=== PATIENT | female | born 1940 | race Caucasian/White ===

== ENCOUNTER 2021-01-11 20:23 | Emergency (ER) | payer MEDICARE, OTHER ==
[~2021-01-11 20:23] MED LIST: ALLEGRA ALLERG180 MG PO; ASPIRIN EC81 MG PO; BENTYL10 MG PO; CARTIA XT120 MG PO; COZAAR 25MG TAB25 MG PO; FLONASE ALLER15.8 ML; K-DUR20 MEQ PO; LASIX40 MG PO; NORCO 5-325 TA1 EACH PO; PHAZYME180 MG PO; PRAVACHOL20 MG PO; PROTONIX 40MG T40 MG PO; SINGULAIR10 MG PO; SUPER B COMPLE150 MG PO; VITAMIN D50000 UNIT PO
[2021-01-11 21:05] LABS: BASOPHIL 0.7 % (0-2); EOSINOPHIL 2.8 % (0-7); HCT 37.3 % (37.0-47.0); HGB 12.2 g/dl (12.5-16.0); LYMPHOCYTE 40.2 % (15-48); MCH 30.6 pg (25.0-31.0); MCHC 32.7 g/dL (32.0-36.0); MCV 93.5 fL (78.0-100.0); MONOCYTE 13.7 % (0-12); MPV 11.1 fL (6.0-9.5); NEUTROPHIL 42.4 % (41-80); NRBC 0; PLT 175 K/uL (150-400); RBC 3.99 M/uL (4.20-5.40); RDW 15.8 % (11.5-14.0); WBC 4.2 K/uL (4.0-10.5)
[2021-01-11 21:09] LABS: INR 1.21 (0.9-1.2); PROTHROMBIN TIME 14.5 SECONDS (11.4-13.6); PTT 31.3 SECONDS (22.2-34.7)
[2021-01-11 21:17] LABS: ALBUMIN 3.8 g/dL (3.4-5.0); BILIRUBIN - TOTAL 0.5 mg/dL (0.2-1.0); BUN/CREAT RATIO (CALC) 28.1 RATIO; CREATININE 0.64 mg/dL (0.51-0.95); GLOBULIN (CALCULATION) 3.4 g/dL; POTASSIUM 3.7 mmol/L (3.5-5.1); TOTAL PROTEIN 7.2 g/dL (6.4-8.2)
== END 2021-01-11 22:25 | disposition home or self-care (01) ==
LOC: FER 20:23
PROVIDERS: Emergency Medicine
DX: I48.0 Paroxysmal atrial fibrillation (principal); I10 Essential (primary) hypertension; Z88.0 Allergy status to penicillin; Z88.5 Allergy status to narcotic agent; Z79.01 Long term (current) use of anticoagulants; Z79.899 Other long term (current) drug therapy
CPT/HCPCS: 36415; 71045; 80053; 84484; 85025; 85610; 85730; 93005

== ENCOUNTER 2021-11-25 19:56 | Emergency (ER) | payer MEDICARE, OTHER ==
[2021-11-25 20:49] LABS: BASOPHIL 0.8 % (0-2); EOSINOPHIL 2.7 % (0-7); HGB 12.4 g/dl (12.5-16.0); LYMPHOCYTE 37.2 % (15-48); MCHC 32.6 g/dL (32.0-36.0); MCV 91.8 fL (78.0-100.0); MONOCYTE 12.7 % (0-12); MPV 11.5 fL (6.0-9.5); NEUTROPHIL 46.4 % (41-80); NRBC 0; PLT 171 K/uL (150-400); RBC 4.14 M/uL (4.20-5.40); RDW 15.6 % (11.5-14.0); WBC 4.9 K/uL (4.0-10.5)
[2021-11-25 21:15] LABS: ALBUMIN 3.6 g/dL (3.4-5.0); BILIRUBIN - TOTAL 0.4 mg/dL (0.2-1.0); CREATININE 0.76 mg/dL (0.51-0.95); GLOBULIN (CALCULATION) 3.5 g/dL; MAGNESIUM 1.8 mg/dL (1.8-2.4); POTASSIUM 3.9 mmol/L (3.5-5.1); TOTAL PROTEIN 7.1 g/dL (6.4-8.2)
== END 2021-11-25 23:25 | disposition home or self-care (01) ==
LOC: FER 19:56
PROVIDERS: Internal Medicine
DX: I16.0 Hypertensive urgency (principal); I10 Essential (primary) hypertension; Z88.0 Allergy status to penicillin; Z88.2 Allergy status to sulfonamides; Z88.5 Allergy status to narcotic agent
CPT/HCPCS: 36415; 71250; 80053; 83690; 83735; 83880; 84145; 84484; 85025; 85379; 93005; 94640; J0360

== ENCOUNTER 2022-01-15 18:57 | Emergency (ER) | payer MEDICARE, OTHER ==
[2022-01-15 19:54] LABS: BASOPHIL 0.9 % (0-2); EOSINOPHIL 2.2 % (0-7); HCT 37.9 % (37.0-47.0); HGB 12.5 g/dl (12.5-16.0); LYMPHOCYTE 37.9 % (15-48); MCH 30.3 pg (25.0-31.0); MONOCYTE 12.9 % (0-12); MPV 11.3 fL (6.0-9.5); NEUTROPHIL 45.9 % (41-80); NRBC 0; PLT 173 K/uL (150-400); RBC 4.12 M/uL (4.20-5.40); RDW 15.9 % (11.5-14.0); WBC 4.5 K/uL (4.0-10.5)
[2022-01-15 20:25] LABS: ALBUMIN 3.9 g/dL (3.4-5.0); BILIRUBIN - TOTAL 0.6 mg/dL (0.2-1.0); BUN/CREAT RATIO (CALC) 25.8 RATIO; CREATININE 0.66 mg/dL (0.51-0.95); GLOBULIN (CALCULATION) 3.2 g/dL; POTASSIUM 3.4 mmol/L (3.5-5.1); TOTAL PROTEIN 7.1 g/dL (6.4-8.2)
== END 2022-01-15 21:58 | disposition home or self-care (01) ==
LOC: FER 18:57
PROVIDERS: Emergency Medicine
DX: R42 Dizziness and giddiness (principal); R51.9 Headache, unspecified; I10 Essential (primary) hypertension; I48.91 Unspecified atrial fibrillation; Z88.0 Allergy status to penicillin; Z88.5 Allergy status to narcotic agent; Z79.01 Long term (current) use of anticoagulants
CPT/HCPCS: 36415; 70450; 80053; 84484; 85025; 93005

== ENCOUNTER 2022-01-17 19:54 | Emergency (ER) | payer MEDICARE, OTHER ==
[2022-01-17 21:42] LABS: BASOPHIL 0.7 % (0-2); EOSINOPHIL 2.8 % (0-7); HCT 38.2 % (37.0-47.0); HGB 12.8 g/dl (12.5-16.0); MCHC 33.5 g/dL (32.0-36.0); MCV 92.5 fL (78.0-100.0); MONOCYTE 13.2 % (0-12); MPV 10.8 fL (6.0-9.5); NEUTROPHIL 40.1 % (41-80); NRBC 0; PLT 170 K/uL (150-400); RBC 4.13 M/uL (4.20-5.40); RDW 15.9 % (11.5-14.0); WBC 4.3 K/uL (4.0-10.5)
[2022-01-17 22:11] LABS: BILIRUBIN - TOTAL 0.6 mg/dL (0.2-1.0); BUN/CREAT RATIO (CALC) 29.2 RATIO; CREATININE 0.65 mg/dL (0.51-0.95); GLOBULIN (CALCULATION) 3.4 g/dL; MAGNESIUM 2.1 mg/dL (1.8-2.4); POTASSIUM 3.6 mmol/L (3.5-5.1); TOTAL PROTEIN 7.4 g/dL (6.4-8.2)
[2022-01-17] MEDS ORDERED: NORVASC5 MG PO (23:34)
== END 2022-01-18 00:06 | disposition home or self-care (01) ==
LOC: FER 19:54
PROVIDERS: Internal Medicine
DX: I10 Essential (primary) hypertension (principal); I48.91 Unspecified atrial fibrillation; Z88.0 Allergy status to penicillin; Z88.5 Allergy status to narcotic agent; Z79.01 Long term (current) use of anticoagulants
CPT/HCPCS: 36415; 80053; 83735; 83880; 84484; 85025; 93005; J3475